=== PATIENT | male | born 1995 | race American Indian/Alaskan Native ===

== ENCOUNTER 2020-05-30 17:13 | Emergency (ER) | payer OTHER ==
--- NOTE | 2020-05-30 19:11 | EDM.PDOC ---
ED HPI GENERAL MEDICAL PROBLEM - General Chief Complaint: Laceration Stated Complaint: FELL CUT ON HAND Time Seen by Provider: 05/30/20 17:45 Source of Information: Reports: Patient History Limitations: Reports: No Limitations - History of Present Illness INITIAL COMMENTS - FREE TEXT/NARRATIVE: Patient is a 25-year-old male presenting to the emergency department with complaints of a 1 cm V-shaped laceration to his right palm. He states yesterday he fell and hit his hand on a piece of metal. This was about 3 PM yesterday. He comes in today with concern of working with the open laceration. Had a covered with a Band-Aid and states when he removed the Band-Aid look like his "fat was popping out of his palm". His last tetanus vaccine was about 1 year ago. - Related Data Allergies Allergy/AdvReac Type Severity Reaction Status Date / Time No Known Allergies Allergy Verified 05/30/20 17:35 Home Meds: Home Meds . [No Known Home Meds] 05/30/20 [History] Social & Family History - Tobacco Use Tobacco Use Status *Q: Current Every Day Tobacco User Years of Tobacco use: 5 Packs/Tins Daily: 1 - Caffeine Use Caffeine Use: Reports: Coffee, Soda - Recreational Drug Use Recreational Drug Use: No ED ROS GENERAL - Review of Systems Review Of Systems: Comprehensive ROS is negative, except as noted in HPI. ED EXAM, SKIN/RASH Exam: See Below General Appearance: Alert, WD/WN, No Apparent Distress Respiratory/Chest: No Respiratory Distress, Lungs Clear, Normal Breath Sounds, No Accessory Muscle Use, Chest Non-Tender Cardiovascular: Normal Peripheral Pulses, Regular Rate, Rhythm, No Edema, No Gallop, No JVD, No Murmur, No Rub Skin: Other (1 cm V-shaped laceration to the right palm. No active bleeding.) Course - Vital Signs Last Recorded V/S: Last Vital Signs Temp 98.6 F 05/30/20 17:36 Pulse 82 05/30/20 17:36 Resp 16 05/30/20 17:36 BP Pulse Ox 99 05/30/20 17:36 - Re-Assessments/Exams Free Text/Narrative Re-Assessment/Exam: 05/30/20 19:09 Patient is a 25-year-old male presenting with concerns of a 1 cm V-shaped laceration on his right palm. It has been greater than 24 hours since this was occurred, therefore sutures are not indicated at this point. Wound was cleaned by nursing staff. I have applied a Steri-Strip to the laceration. Discussed that when he is working, it is important that he keeps the area covered so that it is not become contaminated. Discussed signs of infection. He is up-to-date on his tetanus vaccination. Discharge instructions as documented. Departure - Departure Time of Disposition: 19:10 Disposition: Home, Self-Care 01 Condition: Good Clinical Impression: Laceration - Discharge Information *PRESCRIPTION DRUG MONITORING PROGRAM REVIEWED*: No *COPY OF PRESCRIPTION DRUG MONITORING REPORT IN PATIENT DANELLE: No Instructions: Laceration Care, Adult, [id number] Referrals: PCP,None [Primary Care Provider] - Additional Instructions: You were seen in the emergency department today for a laceration to your right hand. The wound was cleansed and closed with 2 steri strops. These should stay intact until they fall off by themselves. Keep the wound clean and dry. Wash with normal soap and water twice daily. Do not submerge the wound in water. Watch for signs of infection including increased redness, swelling, or purulent drainage. If these should occur, you should be seen either in the clinic or in the emergency department as antibiotic treatment may be needed. Return to the ER as needed. Sepsis Event Note (ED) - Evaluation Sepsis Screening Result: No Definite Risk - Focused Exam Vital Signs: Vital Signs Temp Pulse Resp Pulse Ox 05/30/20 17:36 98.6 F 82 16 99
== END 2020-05-30 19:24 | disposition home or self-care (01) ==
LOC: JD.ED 17:13
DX: S61.411A Laceration without foreign body of right hand, initial encounter (principal); F17.210 Nicotine dependence, cigarettes, uncomplicated; W26.8XXA Contact with other sharp object(s), not elsewhere classified, initial encounter
CPT/HCPCS: 99282

== ENCOUNTER 2020-07-05 19:55 | Emergency (ER) | payer SELFPAY ==
--- NOTE | 2020-07-05 21:34 | EDM.PDOCBH ---
ED HPI GENERAL MEDICAL PROBLEM - General Chief Complaint: Drug or Alcohol Abuse Stated Complaint: TALK WITH DOC Time Seen by Provider: 07/05/20 20:32 Source of Information: Reports: Patient, RN Notes Reviewed History Limitations: Reports: No Limitations - History of Present Illness INITIAL COMMENTS - FREE TEXT/NARRATIVE: Patient is a 25-year-old male presenting to the emergency department with a request of getting help to stop using oxycodone. He states that over the last few weeks, he has been smoking 1 tab of OxyContin 3 times a day. He states he recently lost his job and began using shortly thereafter. He states whenever he tries to stop, he gets anxious and cannot sleep. He then smokes again so that he can sleep. He is looking for a medication to help him get through the anxiety and insomnia. He does not feel that he needs inpatient treatment as he feels he will be able to kick this himself without help. He states he has no more OxyContin at home and does not plan to purchase anymore. He wants to go home to his family, however he does not want them to know about the problem he is having. States "I do not want a room my life ". He last used shortly prior to coming to the ER. He denies any homicidal or suicidal ideations. This is the first time he has ever used recreational drugs. Denies any alcohol use. He does smoke tobacco cigarettes. - Related Data Allergies Allergy/AdvReac Type Severity Reaction Status Date / Time No Known Allergies Allergy Verified 07/05/20 20:30 Home Meds: Home Meds . [No Known Home Meds] 05/30/20 [History] Past Medical History Psychiatric History: Reports: Addiction, Anxiety Social & Family History - Tobacco Use Tobacco Use Status *Q: Current Every Day Tobacco User Years of Tobacco use: 3 Packs/Tins Daily: 2 - Caffeine Use Caffeine Use: Reports: None - Recreational Drug Use Recreational Drug Use: Yes Recreational Drug Type: Reports: Marijuana/Hashish, Oxycodone ED ROS GENERAL - Review of Systems Review Of Systems: See Below Constitutional: Reports: No Symptoms HEENT: Reports: No Symptoms Respiratory: Reports: No Symptoms Cardiovascular: Reports: No Symptoms Endocrine: Reports: No Symptoms GI/Abdominal: Reports: No Symptoms : Reports: No Symptoms Musculoskeletal: Reports: No Symptoms Skin: Reports: No Symptoms Neurological: Reports: No Symptoms Psychiatric: Reports: Anxiety, Other (Insomnia) Hematologic/Lymphatic: Reports: No Symptoms Immunologic: Reports: No Symptoms ED EXAM, BEHAVIORAL HEALTH - Physical Exam Exam: See Below Exam Limited By: No Limitations General Appearance: Alert, WD/WN, No Apparent Distress Respiratory/Chest: No Respiratory Distress, Lungs Clear, Normal Breath Sounds, No Accessory Muscle Use, Chest Non-Tender Cardiovascular: Normal Peripheral Pulses, Regular Rate, Rhythm, No Edema, No Gallop, No JVD, No Murmur, No Rub GI/Abdominal: Normal Bowel Sounds, Soft, Non-Tender, No Organomegaly, No Distention, No Abnormal Bruit, No Mass Neurological: Alert, Normal Mood/Affect, CN II-XII Intact, Normal Cognition, Normal Gait, Normal Reflexes, No Motor/Sensory Deficits, Oriented x 3 Psychiatric: Alert, Normal Affect, Normal Cognition, Normal Mood, Oriented, Other (Mildly anxious) COURSE, BEHAVIORAL HEALTH COMP - Course Vital Signs: Last Vital Signs Temp 97.6 F 07/05/20 20:27 Pulse 81 07/05/20 20:27 Resp 18 07/05/20 20:27 BP 153/95 H 07/05/20 20:27 Pulse Ox 100 07/05/20 20:27 Discharge vs Psych Eval/Treatment:: Patient is a 25-year-old male presenting to the emergency department with request of help to stop using oxycodone. He states that he has tried stopping in the past but becomes anxious and cannot sleep, therefore he uses again. He has been using for the last few weeks. Prior to that he denies any illicit drug use. Discussed with him the different resources available here in [facility], including the [facility] residential crisis center. He does not feel that he needs this at this time. He feels that he can kick this on his own if he has something to help him with anxiety and insomnia. He states that he has no more oxycodone at home and does not plan on purchasing any. He wants to go home to his family, however he does not want them to know that he has been using. He states that he does not want to ruin his life like he has seen many others do. I will provide him with an [facility] prescription for Ativan 1 mg x 10 tabs. He may take 1 tab up to 3 times daily as needed for anxiety. Had a long conversation with him that he must not use oxycodone while taking these medications as it can cause oversedation. He verbalized understanding of this. States that he lives with a friend who does not use and that he can help him with the withdrawal. His friend is aware of the problems he is having and knows that he is in the ER looking for help. Discussed with him that if he tries doing the detox at home and is unsuccessful, he should return to the emergency department as opposed to using oxycodone as there are more resources available for help. He verbalized understanding of this. Discharge instructions as documented. Departure - Departure Time of Disposition: 21:34 Disposition: Home, Self-Care 01 Condition: Good Clinical Impression: Drug abuse - Discharge Information *PRESCRIPTION DRUG MONITORING PROGRAM REVIEWED*: Yes *COPY OF PRESCRIPTION DRUG MONITORING REPORT IN PATIENT DANELLE: No Instructions: Substance Use Disorder Referrals: PCP,None [Primary Care Provider] - Additional Instructions: You were seen in the emergency department today for help stopping using oxycodone. As we discussed, there are numerous resources available to help you with this, however you feel that she will build to stop at home. You have been provided a prescription for Ativan. You may take 1 tab every 12 hours as needed for anxiety and insomnia. Do not smoke oxycodone while taking this medication as it can cause oversedation and may suppress your ability to breathe. You should be supervised during your detox through with the assistance of your friend who you live with. If you find that the medications given are not working for the anxiety or withdrawal symptoms, return to the emergency department for further assistance as opposed to using oxycodone again. Sepsis Event Note (ED) - Evaluation Sepsis Screening Result: No Definite Risk - Focused Exam Vital Signs: Vital Signs Temp Pulse Resp BP Pulse Ox 07/05/20 20:27 97.6 F 81 18 153/95 H 100
== END 2020-07-05 21:48 | disposition home or self-care (01) ==
LOC: JD.ED 19:55
DX: F11.10 Opioid abuse, uncomplicated (principal); F17.210 Nicotine dependence, cigarettes, uncomplicated
CPT/HCPCS: 99283